=== PATIENT | female | born 1975 | race Caucasian/White ===

== ENCOUNTER 2016-08-01 09:37 | Emergency (ER) | payer BC ==
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
[2016-08-01] MEDS ORDERED: KETOROLAC 30 MG/ML VIAL IM ONE (10:59)
== END 2016-08-01 11:24 | disposition home or self-care (01) ==
LOC: ER 09:37
DX: M75.51 Bursitis of right shoulder (principal); G44.209 Tension-type headache, unspecified, not intractable
CPT/HCPCS: 99283 ×2; 96372; J1885